=== PATIENT | female | born 1985 | race Two or more races ===

== ENCOUNTER 2025-08-19 07:34 | Outpatient (CLI) | payer OTHER | END 2025-08-19 07:35 | disposition home or self-care (01) | LOC: NUCLEAR 07:34 | PROVIDERS: ATTEND Internal Medicine Rheumatology | DX: M25.50 Pain in unspecified joint (principal) ==

== ENCOUNTER 2025-08-26 08:00 | Emergency (ER) | payer OTHER ==
[~2025-08-26] VITALS: Ht 177.8 cm; Wt 112.5 kg
[2025-08-26] MEDS ORDERED: TRIAMCINOLONE ACETONIDE 40 MG/ML VIAL IM STA (09:04)
[2025-08-26] MEDS ORDERED: KETOROLAC TROMETHAMINE 30 MG VIAL IM STA (09:05)
[2025-08-26] MEDS ORDERED: ORPHENADRINE CITRATE 30 MG/ML AMPUL IM STA (09:06)
[2025-08-26] MEDS ORDERED: KETOROLAC TROMETHAMINE 30 MG VIAL ONE (09:15)
[2025-08-26] MEDS ORDERED: ORPHENADRINE CITRATE 30 MG/ML AMPUL ONE (09:15)
[2025-08-26] MEDS ORDERED: TRIAMCINOLONE ACETONIDE 40 MG/ML VIAL ONE (09:16)
[2025-08-26 11:43] LABS: BASO % 0.3 % (0.1-1.2); EOS # 0.55 (0.04-0.54); EOS % 5.6 % (0.7-7.0); LYMPH # 2.10 (1.18-3.74); LYMPH % 21.5 % (19.3-53.1); MEAN PLATELET VOLUME 9.80 fl (9.4-12.4); MONO # 0.44 (0.24-0.82); MONO % 4.5 % (4.7-12.5); NEUT # 6.62 (1.56-6.13); NEUT % 67.7 % (34.0-71.1); RED CELL DISTRIBUTION WIDTH 16.2 % (11.6-14.4)
[2025-08-26 12:04] LABS: ALT/SGPT 16.0 U/L (12-78); AST/SGOT 8.0 U/L (15-37); BILIRUBIN TOTAL 0.4 mg/dL (0.3-1.2); BUN CREA RATIO 19.0 (7.0-25.0); CREATININE SERUM 0.57 mg/dL (0.55-1.02); GFR 118.08; GLOBULINA 3.6 G/DL (2.4-3.5); GLUCOSE FASTING 145.0 mg/dL (65-100); OSMOLALITY SERUM 283.0 MOSM/KG (275-295)
== END 2025-08-26 13:59 | disposition home or self-care (01) ==
LOC: ER 08:00
PROVIDERS: General Practice
DX: M25.562 Pain in left knee (principal); M85.88 Other specified disorders of bone density and structure, other site; M17.12 Unilateral primary osteoarthritis, left knee; I87.2 Venous insufficiency (chronic) (peripheral)

== ENCOUNTER → 2025-09-29 09:00 | Outpatient (CLI) | payer OTHER | END | disposition home or self-care (01) | LOC: NUCLEAR 09:00 | PROVIDERS: ATTEND Orthopaedic Surgery | DX: M81.0 Age-related osteoporosis without current pathological fracture (principal) ==

== ENCOUNTER 2025-10-05 09:38 | Outpatient (CLI) | payer OTHER ==
[2025-10-05 11:10] LABS: BASO % 0.4 % (0.1-1.2); EOS # 0.40 (0.04-0.54); EOS % 3.5 % (0.7-7.0); LYMPH # 2.51 (1.18-3.74); LYMPH % 22.2 % (19.3-53.1); MEAN PLATELET VOLUME 9.90 fl (9.4-12.4); MONO # 0.78 (0.24-0.82); MONO % 6.9 % (4.7-12.5); NEUT # 7.55 (1.56-6.13); NEUT % 66.7 % (34.0-71.1); RED CELL DISTRIBUTION WIDTH 16.9 % (11.6-14.4)
[2025-10-05 11:37] LABS: URINE APPEARANCE Clear; URINE BILIRRUBIN Negative (NEGATIVE); URINE BLOOD Moderate; URINE COLOR Yellow; URINE GLUCOSE Negative (NEGATIVE); URINE KETONE Negative (NEGATIVE); URINE LEUKOCYTE Negative; URINE NITRATE Negative; URINE PROTEIN Negative (NEGATIVE); URINE UROBILINOGEN 1.0 E.U./dl
[2025-10-05 11:37] LABS: INR 0.99
[2025-10-05 11:39] LABS: COL EPI 103 SECONDS (82-175)
[2025-10-05 11:40] LABS: URINE BACTERIA 13.1 uL (0.0-1933); URINE EPITHELIAL CELLS 2.4 uL (0.0-38.8); URINE RBC 23.6 uL (0.0-20.8); URINE WBC 2.2 uL (0.0-23.2)
[2025-10-05 11:41] LABS: URINE CAST 0.14 uL (0.0-1.40)
[2025-10-05 11:48] LABS: ALT/SGPT 14.0 U/L (12-78); AST/SGOT 6.0 U/L (15-37); BILIRUBIN TOTAL 0.32 mg/dL (0.3-1.2); BUN CREA RATIO 20.0 (7.0-25.0); CREATININE SERUM 0.45 mg/dL (0.55-1.02); GFR 155.11; GLOBULINA 4.0 G/DL (2.4-3.5); GLUCOSE FASTING 97.0 mg/dL (65-100); OSMOLALITY SERUM 278.0 MOSM/KG (275-295)
== END 2025-10-05 09:56 | disposition home or self-care (01) ==
LOC: LAB 09:38
PROVIDERS: ATTEND Orthopaedic Surgery
DX: I10 Essential (primary) hypertension (principal); Z76.89 Persons encountering health services in other specified circumstances; D64.9 Anemia, unspecified; E88.9 Metabolic disorder, unspecified; D68.8 Other specified coagulation defects; N39.0 Urinary tract infection, site not specified; Z22.322 Carrier or suspected carrier of Methicillin resistant Staphylococcus aureus; E11.8 Type 2 diabetes mellitus with unspecified complications

== ENCOUNTER 2025-10-07 10:15 | Inpatient (IN) | payer OTHER ==
[~2025-10-07] VITALS: Ht 177.8 cm; Wt 110.2 kg
[2025-10-26] MEDS ORDERED: KETOROLAC TROMETHAMINE 60 MG VIAL IM ONE (13:41)
[2025-10-26] MEDS ORDERED: VANCOMYCIN HCL 1,000 MG VIAL ONE (13:42)
[2025-10-26] MEDS ORDERED: LIDOCAINE HCL 1%/EPINEPHRINE 20ML VIAL IJ ONE (13:42)
[2025-10-26] MEDS ORDERED: BUPIVACAINE HCL/MPF 0.5% 30ML VIAL ONE (13:42)
[2025-10-26] MEDS ORDERED: CEFAZOLIN SODIUM 1,000 MG VIAL ONE (13:43)
[2025-10-26] MEDS ORDERED: TRANEXAMIC ACID 100MG/1ML (1000MG) AMPUL ONE (13:45)
[2025-10-26] MEDS ORDERED: KETOROLAC TROMETHAMINE 30 MG VIAL ONE (13:46)
[2025-10-26] MEDS ORDERED: DEXAMETHASONE SODIUM PHOSPHATE 4 MG/ML VIAL ONE (13:46)
[2025-10-26] MEDS ORDERED: SODIUM CHLORIDE 0.45 % 1,000 ML IV SCH (19:45)
[2025-10-26] MEDS ORDERED: ONDANSETRON HCL 2 MG/ML VIAL IV PRN (19:45)
[2025-10-26] MEDS ORDERED: TRAMADOL HCL 50 MG TABLET PO PRN (19:45)
[2025-10-26] MEDS ORDERED: PROMETHAZINE HCL 50 MG/ML AMPUL IM PRN (19:45)
[2025-10-26] MEDS ORDERED: ONDANSETRON 4 MG TAB.RAPDIS PO PRN (19:45)
[2025-10-26] MEDS ORDERED: ACETAMINOPHEN 325 MG TABLET PO SCH (21:00)
[2025-10-26] MEDS ORDERED: KETOROLAC TROMETHAMINE 10 MG TABLET PO SCH (21:00)
[2025-10-27 01:00] VITALS: BP 111/77; O2SAT 100
[2025-10-27] MEDS ORDERED: CELECOXIB 200 MG CAPSULE PO SCH (01:00)
[2025-10-27] MEDS ORDERED: CEFAZOLIN SODIUM 1,000 MG VIAL IV SCH (01:00)
[2025-10-27 07:51] LABS: BASO % 0.3 % (0.1-1.2); EOS # 0.04 (0.04-0.54); EOS % 0.3 % (0.7-7.0); LYMPH # 2.24 (1.18-3.74); LYMPH % 15.8 % (19.3-53.1); MEAN PLATELET VOLUME 10.30 fl (9.4-12.4); MONO # 1.32 (0.24-0.82); MONO % 9.3 % (4.7-12.5); NEUT # 10.43 (1.56-6.13); NEUT % 73.8 % (34.0-71.1); RED CELL DISTRIBUTION WIDTH 15.9 % (11.6-14.4)
[2025-10-27] MEDS ORDERED: HYDROCORTISONE SODIUM SUCC/PF 100 MG VIAL IV NR (08:00)
[2025-10-27 08:36] VITALS: BP 97/64; O2SAT 97
[2025-10-27] MEDS ORDERED: PANTOPRAZOLE SODIUM 40 MG TABLET.DR PO SCH (09:00)
[2025-10-27] MEDS ORDERED: RIVAROXABAN 10 MG TAB PO SCH (09:00)
[2025-10-27 16:00] VITALS: BP 112/73; O2SAT 99
[2025-10-27] MEDS ORDERED: SOD FERRIC GLUC COMPLX/SUCROSE 62.5 MG/5 ML AMPUL IV SCH (17:00)
[2025-10-27 18:47] LABS: COVID-19 AG NEGATIVE (NEGATIVE)
[2025-10-27 19:07] LABS: ALT/SGPT 14.0 U/L (12-78); AST/SGOT 8.0 U/L (15-37); BILIRUBIN TOTAL 0.32 mg/dL (0.3-1.2); BUN CREA RATIO 10.0 (7.0-25.0); CREATININE SERUM 0.71 mg/dL (0.55-1.02); GFR 91.64; GLOBULINA 3.2 G/DL (2.4-3.5); GLUCOSE FASTING 96.0 mg/dL (65-100); OSMOLALITY SERUM 275.0 MOSM/KG (275-295)
[2025-10-28] VITALS: BP 116/78; O2SAT 100
[2025-10-28 08:00] LABS: BASO % 0.4 % (0.1-1.2); EOS # 0.41 (0.04-0.54); EOS % 3.5 % (0.7-7.0); LYMPH # 1.97 (1.18-3.74); LYMPH % 17.0 % (19.3-53.1); MEAN PLATELET VOLUME 9.80 fl (9.4-12.4); MONO # 1.18 (0.24-0.82); MONO % 10.2 % (4.7-12.5); NEUT # 7.92 (1.56-6.13); NEUT % 68.5 % (34.0-71.1); RED CELL DISTRIBUTION WIDTH 16.2 % (11.6-14.4)
[2025-10-28] MEDS ORDERED: SENNA/DOCUSATE SODIUM 1 TAB TABLET PO SCH (09:00)
[2025-10-28] MEDS ORDERED: ALLOPURINOL 100 MG TABLET PO SCH (09:01)
[2025-10-28 10:24] VITALS: BP 130/86; O2SAT 100
[2025-10-28 15:00] VITALS: BP 126/87; O2SAT 98
[2025-10-29] VITALS: BP 110/69; O2SAT 98
[2025-10-29 08:00] VITALS: BP 126/86; O2SAT 99
[2025-10-29 15:00] VITALS: BP 121/56; BP 130/77; O2SAT 98; O2SAT 99
[2025-10-29] MEDS ORDERED: PREDNISONE 5 MG TABLET PO NR (15:30)
[2025-10-30 00:33] VITALS: BP 118/78; O2SAT 98
[2025-10-30 08:00] VITALS: BP 129/88; O2SAT 97
[2025-10-30] MEDS ORDERED: PREDNISONE 5 MG TABLET PO SCH (09:00)
[2025-10-30] MEDS ORDERED: MINERAL OIL 30 ML BLIST.PACK PO NR (09:30)
[2025-10-30] MEDS ORDERED: MAGNESIUM HYDROXIDE 30 ML BLIST.PACK PO NR (09:30)
[2025-10-30] MEDS ORDERED: LACTULOSE 20 G/30 ML BLIST.PACK PO NR (09:30)
[2025-10-30 15:00] VITALS: BP 117/783; O2SAT 99
[2025-10-31] VITALS: BP 120/80; O2SAT 100
[2025-10-31 07:12] LABS: BASO % 0.4 % (0.1-1.2); EOS # 0.64 (0.04-0.54); EOS % 6.9 % (0.7-7.0); LYMPH # 2.70 (1.18-3.74); LYMPH % 29.2 % (19.3-53.1); MEAN PLATELET VOLUME 10.10 fl (9.4-12.4); MONO # 0.63 (0.24-0.82); MONO % 6.8 % (4.7-12.5); NEUT # 5.22 (1.56-6.13); NEUT % 56.4 % (34.0-71.1); RED CELL DISTRIBUTION WIDTH 16.6 % (11.6-14.4)
[2025-10-31 08:23] VITALS: BP 123/85; O2SAT 98
[2025-10-31] MEDS ORDERED: HYDROCORTISONE SODIUM SUCC/PF 100 MG VIAL IV NR (10:00)
[2025-10-31] MEDS ORDERED: Cyanocobalamin/Mecobalamin 1 TAB.SL SL SCH (12:00)
[2025-10-31 16:16] VITALS: BP 128/87; O2SAT 99
[2025-10-31 17:40] LABS: URINE APPEARANCE Clear; URINE BILIRRUBIN Negative (NEGATIVE); URINE BLOOD Large; URINE COLOR Yellow; URINE GLUCOSE Negative (NEGATIVE); URINE KETONE Negative (NEGATIVE); URINE LEUKOCYTE Negative; URINE NITRATE Negative; URINE PROTEIN Negative (NEGATIVE); URINE UROBILINOGEN 0.2 E.U./dl
[2025-10-31 17:43] LABS: URINE BACTERIA 50.3 uL (0.0-1933); URINE EPITHELIAL CELLS 17.6 uL (0.0-38.8); URINE RBC 83.1 uL (0.0-20.8); URINE WBC 2.1 uL (0.0-23.2)
[2025-10-31 17:53] LABS: URINE CAST 0.00 uL (0.0-1.40)
[2025-10-31 21:51] LABS: ob NEGATIVE (NEGATIVE)
[2025-11-01 00:15] VITALS: BP 127/84; O2SAT 100
[2025-11-01 08:00] VITALS: BP 145/78; O2SAT 99
[2025-11-01 08:08] LABS: BASO % 0.2 % (0.1-1.2); EOS # 0.35 (0.04-0.54); EOS % 3.7 % (0.7-7.0); LYMPH # 3.06 (1.18-3.74); LYMPH % 31.9 % (19.3-53.1); MEAN PLATELET VOLUME 9.60 fl (9.4-12.4); MONO # 0.69 (0.24-0.82); MONO % 7.2 % (4.7-12.5); NEUT # 5.42 (1.56-6.13); NEUT % 56.6 % (34.0-71.1); RED CELL DISTRIBUTION WIDTH 17.2 % (11.6-14.4)
[2025-11-01 08:25] LABS: BILIRUBIN TOTAL 0.30 mg/dL (0.3-1.2); BILIRUBIN,CONJUGATED < 0.10 mg/dL (0.0-0.2); LDH 187 U/L (84-246)
[2025-11-01] MEDS ORDERED: DIPHENHYDRAMINE HCL 50 MG/ML VIAL 1ML IV SCH (11:00)
[2025-11-01] MEDS ORDERED: METHYLPREDNISOLONE SOD SUCC 125 MG VIAL IV SCH (11:00)
[2025-11-01 16:00] VITALS: BP 104/74; O2SAT 98
[2025-11-02] VITALS: BP 127/85; O2SAT 98
[2025-11-02 08:25] VITALS: BP 125/87; O2SAT 87
[2025-11-02 14:18] LABS: BASO % 0.1 % (0.1-1.2); EOS # 0.02 (0.04-0.54); EOS % 0.2 % (0.7-7.0); LYMPH # 1.45 (1.18-3.74); LYMPH % 13.3 % (19.3-53.1); MEAN PLATELET VOLUME 10.50 fl (9.4-12.4); MONO # 0.30 (0.24-0.82); MONO % 2.8 % (4.7-12.5); NEUT # 9.01 (1.56-6.13); NEUT % 82.7 % (34.0-71.1); RED CELL DISTRIBUTION WIDTH 17.9 % (11.6-14.4)
[2025-11-02 15:00] VITALS: BP 130/93; O2SAT 99
== END 2025-11-02 22:57 | disposition home or self-care (01) | DRG 470 ==
LOC: SURH 10-12 07:00 → O/R 10-26 11:40 → SURH 10-26 18:21
PROVIDERS: ADMIT Orthopaedic Surgery; ATTEND Orthopaedic Surgery
PROC: 0QUF0JZ Supplement Left Patella with Synthetic Substitute, Open Approach (ICD-10-PCS; 2025-10-26)
PROC: 0SRD0JZ Replacement of Left Knee Joint with Synthetic Substitute, Open Approach (ICD-10-PCS; principal; 2025-10-26 09:30)
PROC: 30233N1 Transfusion of Nonautologous Red Blood Cells into Peripheral Vein, Percutaneous Approach (ICD-10-PCS; 2025-11-01)
DX: M17.2 Bilateral post-traumatic osteoarthritis of knee (principal); D62 Acute posthemorrhagic anemia; M25.562 Pain in left knee; M93.262 Osteochondritis dissecans, left knee; M10.9 Gout, unspecified; Z96.652 Presence of left artificial knee joint; M06.9 Rheumatoid arthritis, unspecified

== ENCOUNTER 2025-10-07 12:26 | Outpatient (CLI) | payer OTHER ==
[2025-10-07 13:11] LABS: MONONUCLEAR 12.7 %; POLYMORPHONUCLEAR 87.3 %
[2025-10-07 13:28] LABS: ERYTHROCYTE SEDIMENTATION RATE 32 mm/hr (0-20)
[2025-10-07 14:12] LABS: D DIMER 2.53 MG/L
== END 2025-10-07 12:31 | disposition home or self-care (01) ==
LOC: LAB 12:26
PROVIDERS: ATTEND Orthopaedic Surgery
DX: M06.4 Inflammatory polyarthropathy (principal); M25.462 Effusion, left knee

== ENCOUNTER 2025-10-14 10:56 | Outpatient (CLI) | payer OTHER ==
[2025-10-14 11:51] LABS: ALT/SGPT 16.0 U/L (12-78); AST/SGOT 8.0 U/L (15-37); BILIRUBIN TOTAL 0.31 mg/dL (0.3-1.2); BUN CREA RATIO 26.0 (7.0-25.0); CREATININE SERUM 0.42 mg/dL (0.55-1.02); GFR 167.97; GLOBULINA 4.0 G/DL (2.4-3.5); GLUCOSE FASTING 103.0 mg/dL (65-100); OSMOLALITY SERUM 281.0 MOSM/KG (275-295)
== END 2025-10-14 11:10 | disposition home or self-care (01) ==
LOC: LAB 10:56
DX: M10.9 Gout, unspecified (principal)

== ENCOUNTER → 2025-10-26 | Outpatient (CLI) | payer OTHER | END | disposition home or self-care (01) | LOC: LAB 11:16 | DX: Z00.00 Encounter for general adult medical examination without abnormal findings (principal) ==